=== PATIENT | female | born 1990 | race Caucasian/White ===

== ENCOUNTER 2020-12-09 19:48 | Emergency (ER) | payer OTHER ==
[~2020-12-09] VITALS: Ht 157.5 cm; Wt 59.0 kg
[2020-12-09] MEDS ORDERED: [UNRECOGNIZED DRUG - OTHER] SUBQ (19:57)
[2020-12-09 20:20] LABS: ABSOLUTE BASOPHILS 0.1 thou/uL (0.0-0.2); ABSOLUTE LYMPHOCYTES 2.8 thou/uL (0.8-5.3); ABSOLUTE NEUTROPHILS 7.3 thou/uL (1.6-8.1); BASOPHILS 0.9 %; EOSINOPHILS 0.3 %; HEMATOCRIT 39.7 % (37.0-47.0); HEMOGLOBIN 13.5 gm/dL (12.0-15.0); LYMPHOCYTES 25.2 %; MCH 29.7 pg (26.0-34.0); MCHC 34.1 g/dL (28.0-37.0); MCV 87.3 fL (80.0-100.0); MONOCYTES 8.7 %; NUCLEATED RBCS 0 /100WBC; PLATELET COUNT* 306 thou/uL (150-400); POLYS 64.9 %; RBC 4.54 mil/uL (4.20-5.00); RDW-CV 12.3 % (10.5-14.5); WBC 11.2 thou/uL (4.0-11.0)
[2020-12-09 20:23] LABS: CALCIUM 9.2 mg/dL (8.5-10.1); CREATININE 0.8 mg/dL (0.6-1.3); POTASSIUM 3.2 mmol/L (3.5-5.1)
[2020-12-09 20:34] LABS: TOTAL BILIRUBIN 0.3 mg/dL (<0.1-1.0); TOTAL PROTEIN 7.5 g/dL (6.4-8.2)
[2020-12-09 21:09] LABS: URINE BILIRUBIN NEGATIVE (Negative); URINE BLOOD TRACE (Negative); URINE CLARITY CLEAR; URINE COLOR YELLOW; URINE GLUCOSE-RANDOM NEGATIVE (Negative); URINE KETONES 1+ (Negative); URINE LEUKOCYTES-REFLEX NEGATIVE (Negative); URINE NITRITE-REFLEX NEGATIVE (Negative); URINE PROTEIN NEGATIVE (Negative); URINE UROBILINOGEN 0.2 E.U./dl (0.2-1.0)
[2020-12-09 22:37] VITALS: BP 115/70
--- NOTE | 2020-12-10 13:49 | EKG ---
[place] [address] ELECTROCARDIOGRAM REPORT Name: MICHAEL CORTEZ Room: [facility]#: [id number] Admission: 12/09/20 Attend Phys: Discharge: 12/09/20 Date of : 86 Date of Service: 12/09/201953 Report #: [id number] THIS REPORT FOR: //name// [facility] ED Test Date: 2020-12-09 Test Time: 19:54:48 Pat Name: MICHAEL CORTEZ Department: Room: Gender: F [employer]: [place] : 1990 Requested By: Katy Calvin Order Number: [id number] Mustapha MD: Rickie Eduardo Measurements Intervals [place] Rate: 128 P: 96 [place]: 88 QRS: 10 QRSD: 98 T: -79 QT: 365 QTc: 533 Interpretive Statements Sinus tachycardia Borderline repolarization abnormality Prolonged QT interval No previous ECG available for comparison Electronically Signed On 12-10-2020 13:48:53 [employer] OPERATOR by Rickie Eduardo [email or web address] <ELECTRONICALLY SIGNED> By: Rickie Eduardo MD, [facility] 12/10/20 1348 [id number] 53 Rickie Eduardo MD, FAC /EPI
== END 2020-12-09 22:39 | disposition home or self-care (01) ==
LOC: M.ERS 19:48
PROVIDERS: Emergency Medicine Emergency Medical Services; Personal Emergency Response Attendant
DX: F41.9 Anxiety disorder, unspecified (principal); Z20.828 Contact with and (suspected) exposure to other viral communicable diseases